=== PATIENT | female | born 1940 | race Caucasian/White ===

== ENCOUNTER → 2020-10-09 | Outpatient (CLI) | payer MEDICARE, OTHER ==
--- NOTE | 2020-10-10 16:58 | RAD ---
EXAM: Shoulder,Right 2 or More Views INDICATION: 79 years Female, PAIN IN RIGHT SHOULDER COMPARISON: None available FINDINGS: 4 views of the right shoulder were performed. Osteopenia. No fracture is identified. No joint dislocation. No destructive osseous lesion. Moderate degenerative changes in the shoulder. The acromioclavicular joint is intact. No gross soft tissue abnormality. 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 Electronically signed by: Mariel Mclaughlin MD 10/10/2020 4:56 PM [facility]
== END ==
LOC: RAD 09:10
PROVIDERS: ATTEND Orthopaedic Surgery
DX: M19.011 Primary osteoarthritis, right shoulder (principal)